=== PATIENT | male | born 1980 | race American Indian/Alaskan Native ===

== ENCOUNTER 2017-08-19 09:37 | Day surgery (SDC) | payer BC ==
[2017-08-14 08:12] VITALS: BMI 29.7
[2017-08-19] MEDS ORDERED: Bacitracin Ointment 30 GM TUBE ONE (11:56)
[2017-08-19] MEDS ORDERED: Midazolam 2 MG/2 ML VIAL ONE (12:13)
[2017-08-19] MEDS ORDERED: Propofol 10 mg/ml Inj (20 ML) ONE (12:13)
[2017-08-19] MEDS ORDERED: Etomidate 20 mg/10ml Inj IV ONE (12:13)
[2017-08-19] MEDS ORDERED: Sevoflurane - Inhalation Anesthetic Liq (250 ml) ONE (12:26)
[2017-08-19] MEDS ORDERED: ePHEDrine 50 mg/ml Inj ONE (13:05)
[2017-08-19] MEDS ORDERED: Bupivacaine 0.5% Inj(30mL) ONE (13:08)
[2017-08-19] MEDS ORDERED: HYDROmorphone 0.5 mg/0.5 ml ISec IVP PRN (13:59)
--- NOTE | 2017-08-19 14:36 | OP ---
DATE OF OPERATION: 08/19/2017 PREOPERATIVE DIAGNOSIS: Right hydrocele. POSTOPERATIVE DIAGNOSIS: Right hydrocele. PROCEDURE: Right hydrocelectomy. ATTENDING SURGEON: Dr. Amrik Kunz. ANESTHESIA: General with a local block. SPECIMENS: Portion of hydrocele sac was sent to pathology. DRAINS: A portion of Sp-Whitten drain placed in the right hemiscrotum. COMPLICATIONS: None. OPERATIVE FINDINGS: After informed consent was obtained, the patient was taken to the operating room, placed on the operating table and anesthesia was administered. The patient was then prepped and draped in usual sterile fashion. The patient received IV antibiotics prior to start of the procedure. On exam, the patient had a moderate-sized right hydrocele. The right hemiscrotum was approached, the hydrocele and its sac were elevated again to see overlying right scrotal skin. The skin was then incised with a scalpel and dissection was carried down through the subcutaneous layers until the sac was visualized. Using both blunt and sharp dissection, the hydrocele sac was able to be delivered through the incision. The hydrocele sac was densely adherent to the scrotum, there appeared to be multiple loculations as well. After delivering the hydrocele sac through the incision, the sac was then incised on its anterior surface in a cephalocaudal fashion. The fluid was then drained. There was clear yellowish colored fluid noted. The testicle was then delivered through the incision and the sac. Testicle was inspected, there did not appear to be any masses or other abnormalities noted. The sac was then widely opened on its anterior surface. The edges of the sac were then clamped with Allis clamps. There appeared to be multiple cystic structures located within the sac wall. A portion of the wall of the sac was then sharply excised using an electrocautery. A section of the sac was sent to pathology for examination. The cut edges of the sac were then cauterized using electrocautery. The hydrocele was then repaired in a bottle-neck fashion by everting the sac posterior to the testicle and cord and imbricating it to itself posterior to the testicle using a running locking 3-0 Vicryl suture. After the hydrocele had been repaired, the testicle and cord were inspected. They were then returned to their intrascrotal position. Closure was then begun. Prior to closure, a cord block of 0.5% Marcaine was given and as the patient has a latex allergy, a portion of a silicone Sp-Whitten drain was used as a drain instead of a Deana given the patient's latex allergy. The drain was brought out through the scrotum through a separate stab incision and secured to the skin with a 3-0 chromic suture. Inspection was made in the scrotum for any bleeding points which were controlled using electrocautery. At this point, closure was begun. The inner musculofascial layers were closed using a running locking 3-0 Vicryl suture. The skin was reapproximated using interrupted 3-0 chromic suture. A sterile dressing was then applied consisting of bacitracin ointment, sterile fluff gauze and a scrotal support. The patient tolerated the procedure well, was taken to the recovery room awake and in stable condition. Amrik Kunz MD
[2017-08-19] MEDS ORDERED: HYDROmorphone 0.5 mg/0.5 ml ISec ONE (15:04)
[2017-08-19 15:38] VITALS: BP 112/80; PULSE 71; RESP 20; TEMP 97.6; O2SAT 98
[2017-08-19] MEDS ORDERED: Oxycodone/Acetaminophen 5/325 mg Tab PO STA (16:20)
== END 2017-08-19 17:55 | disposition home or self-care (01) ==
LOC: SDS 09:37
PROVIDERS: ATTEND Urology
DX: N43.3 Hydrocele, unspecified (principal); I10 Essential (primary) hypertension; I50.9 Heart failure, unspecified; E11.9 Type 2 diabetes mellitus without complications; E78.5 Hyperlipidemia, unspecified; I42.8 Other cardiomyopathies; E66.9 Obesity, unspecified; Z88.6 Allergy status to analgesic agent; Z91.040 Latex allergy status; Z91.013 Allergy to seafood; Z82.49 Family history of ischemic heart disease and other diseases of the circulatory system
CPT/HCPCS: 55500; 82948; 88302; J0131; J0690; J1170; J2250; J2405; J2704; J3010; J7120